=== PATIENT | female | born 1975 | race Caucasian/White ===

== ENCOUNTER 2021-04-26 09:03 | Emergency (ER) | payer OTHER ==
--- NOTE | 2021-04-26 09:45 | EDM.PDOC ---
ED HPI GENERAL MEDICAL PROBLEM - General Chief Complaint: Lower Extremity Injury/Pain Stated Complaint: TIGHTNESS TO LEG /PAIN Time Seen by Provider: 04/26/21 09:47 Source of Information: Reports: Patient History Limitations: Reports: No Limitations - History of Present Illness INITIAL COMMENTS - FREE TEXT/NARRATIVE: 45-year-old female presents to the ED for evaluation of medial right calf pain. She states been present for the last 3 days but seems to be worse this morning. Tender to touch along the greater saphenous vein distribution medial right calf. She reports she did have a superficial thrombophlebitis in June of this last year and was treated with an 8-week course of Xarelto. She denies any history of DVT or pulmonary embolism. At present she denies shortness of breath or any pleuritic chest pains. She feels current pain along her medial calf is similar to pain she experienced in June. Recent trip [facility] [place] [facility] Got back home about 12 days ago. States his 7-hour flight from [place] to [place]. Onset: Gradual Onset Date: 04/23/21 Duration: Day(s):, Getting Worse Location: Reports: Lower Extremity, Right (Right medial calf pain and tenderness to touch suggestive of superficial thrombophlebitis. She not appreciate any redness or obvious swelling) Quality: Reports: Ache, Throbbing, Other Severity: Moderate (Tender to touch.) Improves with: Reports: Rest Worsens with: Reports: Other Context: Reports: Other (Recent travel to [facility], [place]. Has been home for the 12 days.). Denies: Activity, Exercise, Lifting, Sick Contact, Trauma Associated Symptoms: Reports: No Other Symptoms. Denies: Confusion, Chest Pain, Cough, cough w sputum, Diaphoresis, Fever/Chills, Headaches, Loss of Appetite, Malaise, Nausea/Vomiting, Rash, Seizure, Shortness of Breath Treatments UNIT TENDER: Reports: Other (see below) (Only her regular medications) Right Lower Leg Pain Score (Numeric/FACES): 4 - Related Data Allergies Allergy/AdvReac Type Severity Reaction Status Date / Time clindamycin [From Cleocin] Allergy Rash Verified 04/26/21 09:50 moxifloxacin [From Avelox] Allergy Rash Verified 04/26/21 09:50 Home Meds: Home Meds Rivaroxaban [Xarelto] 15 mg PO BID #42 tab 04/26/21 [Rx] Past Medical History Cardiovascular History: Reports: High Cholesterol, Hypertension, Other (See Below) (History of superficial thrombophlebitis medial calf right side in June of this year) Endocrine/Metabolic History: Reports: Obesity/BMI 30+ - Past Surgical History Female Surgical History: Reports: Section (X1. She developed preeclampsia requiring emergent .) Social & Family History - Living Situation & Occupation Living situation: Reports: Review of Systems - Review of Systems Review Of Systems: See Below Constitutional: Reports: No Symptoms Eyes: Reports: Glasses Ears: Reports: No Symptoms Nose: Reports: No Symptoms Mouth/Throat: Reports: No Symptoms Respiratory: Reports: No Symptoms. Denies: Shortness of Breath, Wheezing, Pleuritic Chest Pain Cardiovascular: Reports: No Symptoms. Denies: Chest Pain, Edema, Irregular Heart Rate, Lightheadedness GI/Abdominal: Reports: No Symptoms Genitourinary: Reports: No Symptoms Musculoskeletal: Reports: Other (Pain medial right calf in the distribution of the greater saphenous vein) Skin: Reports: No Symptoms Neurological: Reports: No Symptoms Psychiatric: Reports: No Symptoms ED EXAM, GENERAL - Physical Exam Exam: See Below Exam Limited By: No Limitations General Appearance: Alert, WD/WN, No Apparent Distress, Other (Temperature is 35.8 degrees. Heart rate is 84 and sinus. Respiratory 16 with O2 sats of 98% on room air. BP 142/103.) Eye Exam: Bilateral Eye: Normal Inspection (No blepharal pallor or scleral icterus), PERRL Respiratory/Chest: No Respiratory Distress, Lungs Clear, Normal Breath Sounds, No Accessory Muscle Use Cardiovascular: Normal Peripheral Pulses, Regular Rate, Rhythm, No Edema, No Gallop, No JVD, No Murmur Peripheral Pulses: 2+: Posterior Tibial (L), Posterior Tibial (R), Dorsalis Pedis (L), Dorsalis Pedis (R) GI/Abdominal: Normal Bowel Sounds, Soft, Non-Tender, No Organomegaly, No Distention, Other (Moderately obese. Well-healed Pfannenstiel incision) Extremities: Normal Inspection, Normal Range of Motion, No Pedal Edema, Other (Patient has pain along the distribution of the greater saphenous vein medial aspect of her right calf. able to localize the pain to the lower greater saphenous vein in the distal one third of the tib-fib. Palpable nodularity of the underlying vein appreciated. No skin changes or redness or obvi). No: Pedal Edema, Limited Range of Motion, Increased Warmth Neurological: Alert, Oriented, CN II-XII Intact, Normal Cognition Psychiatric: Normal Affect, Normal Mood Skin Exam: Warm, Dry, Intact, Normal Color, No Rash Course - Vital Signs Last Recorded V/S: Last Vital Signs Temp 35.8 C L 04/26/21 09:38 Pulse 84 04/26/21 09:38 Resp 16 04/26/21 09:38 BP 142/103 H 04/26/21 09:38 Pulse Ox 98 04/26/21 09:38 - Orders/Labs/Meds Labs: Laboratory Tests 04/26/21 04/26/21 04/26/21 Range/Units 10:23 10:23 10:23 WBC 9.90 (3.98-10.04) K/mm3 RBC 4.37 (3.98-5.22) M/mm3 Hgb 12.8 (11.2-15.7) gm/dl Hct 39.0 (34.1-44.9) % MCV 89.2 (79.4-94.8) fl MCH 29.3 (25.6-32.2) pg MCHC 32.8 (32.2-35.5) g/dl RDW Std Deviation 41.6 (36.4-46.3) fL Plt Count 296 (182-369) K/mm3 MPV 10.1 (9.4-12.3) fl Neut % (Auto) 62.9 (34.0-71.1) % Lymph % (Auto) 25.7 (19.3-51.7) % [place] % (Auto) 6.9 (4.7-12.5) % Eos % (Auto) 3.8 (0.7-5.8) Baso % (Auto) 0.5 (0.1-1.2) % Neut # (Auto) 6.23 H (1.56-6.13) K/mm3 Lymph # (Auto) 2.54 (1.18-3.74) K/mm3 [place] # (Auto) 0.68 H (0.24-0.36) K/mm3 Eos # (Auto) 0.38 H (0.04-0.36) K/mm3 Baso # (Auto) 0.05 (0.01-0.08) K/mm3 PT 9.6 L (9.7-12.0) SECONDS INR < 0.93 APTT 24.5 (21.7-31.4) SECONDS D-Dimer, Quantitative 1.18 H (0.19-0.50) mg/L Sodium 142 (136-145) mEq/L Potassium 3.9 (3.5-5.1) mEq/L Chloride 106 (98-107) mEq/L Carbon Dioxide 27 (21-32) mEq/L Anion Gap 12.9 (5-15) BUN 11 (7-18) mg/dL Creatinine 0.9 (0.55-1.02) mg/dL Est Cr Clr Drug Dosing TNP Estimated GFR (MDRD) > 60 (>60) mL/min BUN/Creatinine Ratio 12.2 L (14-18) Glucose 109 H (70-99) mg/dL Calcium 9.0 (8.5-10.1) mg/dL Total Bilirubin 0.2 (0.2-1.0) mg/dL AST 23 (15-37) U/L ALT 25 (14-59) U/L Alkaline Phosphatase 50 (46-116) U/L Total Protein 7.4 (6.4-8.2) g/dl Albumin 3.0 L (3.4-5.0) g/dl Globulin 4.4 gm/dL Albumin/Globulin Ratio 0.7 L (1-2) Meds: Medications Discontinued Medications Generic Name Dose Route Start Last Admin Trade Name Freq PRN Reason Stop Dose Admin Rivaroxaban 15 mg 04/26/21 11:33 04/26/21 11:46 Rivaroxaban 15 Mg Tab PO 04/26/21 11:34 15 mg ONETIME ONE Administration - Radiology Interpretation Free Text/Narrative:: 45-year-old female presents to the ED for evaluation of right medial calf pain that has come on over the last 3 days. She reports that she had a superficial thrombophlebitis in the same area in June of this year and was treated with an 8-week course of Xarelto. She has no history of PE or DVT. Recent trip to [place] and back by air. Has been home for about 12 days. She reports flight to [place] and from [place] is approximately 7 hours. Examination reveals no respiratory distress. Lungs are clear to auscultation percussion. Vital signs are normal. Examination of the right lower extremity shows no obvious edema. There is no obvious DVT clinically. Patient has palpable tenderness along the greater saphenous vein particular in the distal one third of tib-fib compatible with recurrence of superficial thrombophlebitis. Plan Doppler ultrasound of the right lower extremity be obtained. Routine labs including a D-dimer to be obtained. - Re-Assessments/Exams Free Text/Narrative Re-Assessment/Exam: 04/26/21 10:59 Hematology reveals a normal white count at 9.90. Differential reveals 63% neutrophils and 26% lymphocytes. Hemoglobin is 12.8 with hematocrit of 39.0 platelet count 296,000. PT is 9.6 INR is less than 0.93 PTT is 24.5 D- dimer is mildly elevated at 1.18. Doppler ultrasound is just been completed at this time. 04/26/21 11:36 Doppler ultrasound of the right lower extremity reveals partial thrombus within the posterior tibial artery on the right side. The right peroneal vein was not well identified. Popliteal veins and veins more superiorly show no evidence of thrombosis. Left common femoral vein shows no thrombus. This would explain the superficial engorgement of the greater saphenous vein in the area distal tibia. Patient will thus be placed on Xarelto 15 mg by mouth twice daily for the next 3 weeks and then 20 mg once daily for 2-1/2 months. She did see Dr. Urena--casting machine operator oncologist after last event but no labs or treatment was changed. She was advised that she needs genetic studies and she is willing to have lab redraw here today. Studies will be ordered. Plan will be to send the results to her primary care physician who works at [facility] in the [facility]--Dr jessica Tang? Departure - Departure Time of Disposition: 11:58 Disposition: Home, Self-Care 01 Condition: Fair Clinical Impression: Deep venous thrombosis Qualifiers: DVT location: lower extremity Affected thrombotic vein of extremity: tibial Chronicity: acute Laterality: right Qualified Code(s): I82.441 - Acute embolism and thrombosis of right tibial vein - Discharge Information *PRESCRIPTION DRUG MONITORING PROGRAM REVIEWED*: Not Applicable *COPY OF PRESCRIPTION DRUG MONITORING REPORT IN PATIENT MIKE: Not Applicable Prescriptions: Rivaroxaban [Xarelto] 15 mg PO BID #42 tab Instructions: Deep Vein Thrombosis Referrals: Harjinder Rodriguez MD [Primary Care Provider] - Forms: ED Department Discharge Additional Instructions: Evaluation in the emergency room today in regards to medial lower leg pain /calf pain that is developed over the last 3 or 4 days. Examination reveals tendern ess along the greater saphenous vein in the lower medial leg. Ultrasound reveals a small clot within the posterior tibial vein on the right side. This would cause engorgement of the greater saphenous vein in the area of pain. Treatment is therefore blood thinner--Xarelto 15 mg by mouth twice daily for the next 3 weeks and then switch to a 20 mg tablet once daily for another 2 months. I have ordered genetic studies on the labs test done today to see if there is a problem with genetic presusceptibility to clotting or hypercoagulability. I will try and have the sent to your primary care provider in [place]. Treatment at this time is to take Aleve easy with no excessive walking jogging or exercising of the right lower extremity for the next 5 days to allow the clot not to break loose although it is quite small. After 5 days may resume all normal activities.
--- NOTE | 2021-04-26 11:21 | US ---
Right lower extremity deep venous ultrasound: Duplex and color Doppler evaluation was obtained of the right common femoral, proximal greater saphenous, superficial femoral, popliteal below posterior tibial and peroneal veins. Left common femoral vein was also evaluated. Comparison: No prior venous imaging is available. Findings: Partial thrombus is seen within the posterior tibial artery on the right side. Right peroneal vein was not well seen. Popliteal veins and veins more superiorly show no thrombus. Left common femoral vein shows no thrombus. Impression: 1. Partial thrombosis within the posterior tibial vein. Nonvisualized peroneal vein. 2. Other portions of the venous study appear unremarkable. Diagnostic code #3
[2021-04-26] MEDS ORDERED: Rivaroxaban 15 MG Tab PO ONE (11:33)
== END 2021-04-26 12:25 | disposition home or self-care (01) ==
LOC: JD.ED 09:03
DX: I82.441 Acute embolism and thrombosis of right tibial vein (principal); I10 Essential (primary) hypertension; E66.9 Obesity, unspecified; Z68.30 Body mass index [BMI] 30.0-30.9, adult; Z88.1 Allergy status to other antibiotic agents; Z79.01 Long term (current) use of anticoagulants
CPT/HCPCS: 36415; 80053; 81241; 85025; 85300; 85303; 85306; 85379; 85610; 85730; 86147; 93971; 99284; A9270